=== PATIENT | male | born 1965 ===

== ENCOUNTER 2017-09-08 15:23 | Inpatient (IN) | payer SELFPAY ==
[~2017-09-08] VITALS: Ht 167.6 cm; Wt 72.6 kg
[2017-09-08 15:47] LABS: Hematocrit 51.4 % (37.0-53.0); Hemoglobin 17.4 g/dL (13.5-17.5); Mean Corpuscular HGB 30.2 pg (26.0-34.0); Mean Corpuscular HGB Conc 33.9 g/dL (31.5-36.5); Mean Corpuscular Volume 89 fL (80-100); Mean Platelet Volume 11.5 fL (9.1-12.4); Platelet Count 225 K/mm3 (150-400); RDW Coefficient Variation 13.4 % (11.7-14.2); RDW Standard Deviation 43.7 fL (35.1-46.3); Red Blood Cell Count 5.77 M/mm3 (4.30-5.90); White Blood Cell Count 10.24 K/mm3 (4.00-11.30)
[2017-09-08 15:50] LABS: Calcium, Ionized (POC) 0.93 mmol/L (1.10-1.46); Chloride (POC) 106 mmol/L (98-108); Creatinine (POC) 1.2 mg/dL (0.8-1.3); Glucose (ISTAT POC) 143 mg/dL (70-99); Hemoglobin (POC) 17.7 g/dL (13.5-17.5); Potassium (POC) 3.8 mmol/L (3.5-5.5); Sodium (POC) 138 mmol/L (135-148); Total CO2 (POC) 21 mmol/L (21-32)
[2017-09-08 16:02] LABS: International Normalized Ratio 0.96
[2017-09-08 16:08] LABS: Anion Gap 14 mmol/L (6-16); Blood Urea Nitrogen 16 mg/dL (8-24); CHOL/HDL RATIO 5.1; CO2, Blood 20 mmol/L (21-32); CPK Creatine Kinase 192 U/L (39-308); Calcium, Blood 8.7 mg/dL (8.5-10.1); Chloride, Blood 104 mmol/L (98-108); Cholesterol 267 mg/dL (50-200); Creatine Kinase MB 6.4 ng/mL (0.0-3.6); Creatine Kinase MB Index 3.3 (0.0-4.0); Creatinine, Blood 1.07 mg/dL (0.60-1.20); Glomerular Filtration Rate >60 (60-); Glucose, Blood 138 mg/dL (70-99); HDL Cholesterol 52 mg/dL (>39); LDL/HDL RATIO 2.7; Low Density Lipoprotein Chol 142 mg/dL (0-110); Magnesium, Blood 2.4 mg/dL (1.6-2.4); Sodium, Blood 138 mmol/L (136-145); Triglycerides 364 mg/dL (30-160); Troponin I 0.414 ng/mL (0.000-0.040); Very Low Density Lipoprot Chol 72 mg/dL (6-32)
[2017-09-08 20:46] LABS: Creatine Kinase MB 594.1 ng/mL (0.0-3.6); Creatine Kinase MB Index 9.4 (0.0-4.0)
== END 2017-09-08 20:22 | DRG 246 ==
LOC: ER 15:23 → ICUW 15:24
PROVIDERS: Emergency Medicine; Internal Medicine Cardiovascular Disease
PROC: 027034Z Dilation of Coronary Artery, One Artery with Drug-eluting Intraluminal Device, Percutaneous Approach (ICD-10-PCS; principal; 2017-09-08)
PROC: 5A12012 Performance of Cardiac Output, Single, Manual (ICD-10-PCS; 2017-09-08)
PROC: 5A1935Z Respiratory Ventilation, Less than 24 Consecutive Hours (ICD-10-PCS; 2017-09-08)
PROC: 4A023N7 Measurement of Cardiac Sampling and Pressure, Left Heart, Percutaneous Approach (ICD-10-PCS; 2017-09-08)
PROC: 0BH17EZ Insertion of Endotracheal Airway into Trachea, Via Natural or Artificial Opening (ICD-10-PCS; 2017-09-08)
PROC: 3E0234Z Introduction of Serum, Toxoid and Vaccine into Muscle, Percutaneous Approach (ICD-10-PCS; 2017-09-08)
PROC: B2111ZZ Fluoroscopy of Multiple Coronary Arteries using Low Osmolar Contrast (ICD-10-PCS; 2017-09-08)
DX: I21.09 ST elevation (STEMI) myocardial infarction involving other coronary artery of anterior wall (principal); J96.01 Acute respiratory failure with hypoxia; I50.21 Acute systolic (congestive) heart failure; I46.9 Cardiac arrest, cause unspecified; Z23 Encounter for immunization; F17.210 Nicotine dependence, cigarettes, uncomplicated; F10.20 Alcohol dependence, uncomplicated; I25.5 Ischemic cardiomyopathy; I25.10 Atherosclerotic heart disease of native coronary artery without angina pectoris
CPT/HCPCS: 31500; 31720; 36415; 51702; 71045; 80047; 80048; 80061; 82550; 82553; 83036; 83735; 84484; 85014; 85027; 85610; 85730; 86850; 86900; 86901; 92950; 93005; 93010; 93458; 94660; 96374; 96375; 96376; 99152; 99153; 99285; C1725; C1769; C1874; C1894; C9600; C9606; G0378; J0282; J0330; J1170; J1644; J1940; J2060; J2250; J2405; J3010; J3246; J3411; J7030; J7040; Q9967